=== PATIENT | male | born 1990 | race African-American/Black ===

== ENCOUNTER 2019-10-04 11:56 | Emergency (ER) | payer OTHER ==
[2019-10-04 12:06] VITALS: BP 134/82; PULSE 82; TEMP 97.8; BMI 29.8
--- NOTE | 2019-10-04 12:07 | PDOC ---
Rapid Medical Evaluation Chief Complaint: Abscess Boil Time Seen by Provider: 10/04/19 12:05 Medical Evaluation: Allergies Allergy/AdvReac Type Severity Reaction Status Date / Time No Known Allergies Allergy Verified 10/04/19 12:02 10/04/19 12:05 CC: boil to face and forehead x 3 days, denies hx mrsa, diabetes, had similar bumps to face r/t acne Exam: noted edema to rt nasal bridge and cheek, vss Plan: FT Discharge Disposition - Diagnosis Boil, face, Gluteal abscess - Discharge Dispostion Disposition: HOME Condition at time of disposition: Stable - Prescriptions Prescriptions: Mupirocin Ointment [Bactroban 2% Ointment -] 1 applic TP BID 7 Days #1 tube Clindamycin [Cleocin -] 300 mg PO TID #21 capsule - Referrals Referrals: Magdalene Arshad MD [Staff Physician] - Navneet Alcantara MD [Staff Physician] - - Patient Instructions Printed Discharge Instructions: Boil, DI for Skin Abscess Additional Instructions: Take prescribed medication as prescribed. Apply heat compresses to abscess area 2-3 times a day for 5 minutes to help abscess draining resolve faster. Follow- up referred dermatology Dr. Arshad or plastic surgeon Dr. Navneet Alcantara for management of abscess to the face and buttocks - Post Discharge Activity
[2019-10-04] MEDS ORDERED: CLINDAMYCIN HCL 300 MG CAPSULE PO ONE (12:22)
[2019-10-04] MEDS ORDERED: CLINDAMYCIN HCL 150 MG CAPSULE (FP) ONE (12:29)
--- NOTE | 2019-10-04 12:30 | PDOC ---
History of Present Illness - General Chief Complaint: Abscess Boil Stated Complaint: BOILS Time Seen by Provider: 10/04/19 12:05 History Source: Patient Exam Limitations: Clinical Condition - History of Present Illness Initial Comments: 10/04/19 12:32 Patient with past medical history of recurrent abscesses presented with complaint of abscess to the face on the bridge of the nose, forehead and multiple abscess to gluteal area which has been going on for a week now. Patient report had abscesses drained 2 months ago in a dermatology office where he lives by abscess came back again. Patient has not followed up since then. Patient here with mother and reported familial history of multiple abscesses which multiple family members suffer from skin abscesses. Denies fever, chills, blurry vision, change in vision, nausea, vomiting. Denies any other symptoms Timing/Duration: reports: week Past History - Medical History Allergies/Adverse Reactions: Allergies Allergy/AdvReac Type Severity Reaction Status Date / Time No Known Allergies Allergy Verified 10/04/19 12:02 Home Medications: Ambulatory Orders Clindamycin [Cleocin -] 300 mg PO TID #21 capsule 10/04/19 Mupirocin Ointment [Bactroban 2% Ointment -] 1 applic TP BID 7 Days #1 tube - Psycho-Social/Smoking History Smoking History: Never smoked Information on smoking cessation initiated: No - Substance Abuse Hx (Audit-C & DAST Scrn) In the last yr the pt used illegal drug/Rx for NonMed reason: No Score: Yes response is considered Positive: 0 Screen Result (Positive result requires Nsg. DAST-10): Negative Review of Systems - Review of Systems Able to Perform ROS?: Yes Is the patient limited [place] proficient: No Constitutional: No: Chills, Fever, Malaise HEENTM: No: Symptoms Reported, See HPI, Eye Pain, Blurred Vision, Tearing, Recent change in vision, Double Vision, Cataracts, Ear Pain, Ocular Prothesis, Ear Discharge, Nose Pain, Nose Congestion, Tinnitus, Nose Bleeding, Hearing Loss, Throat Pain, Throat Swelling, Mouth Pain, Dental Problems, Difficulty Swallowing, Mouth Swelling, Other Respiratory: No: Symptoms reported Cardiac (ROS): No: Symptoms Reported Integumentary: Yes: Symptoms Reported, See HPI, Lumps (skin abscesses to face and gluteal region) Neurological: No: Symptoms reported, Weakness, Dizziness All Other Systems: Reviewed and Negative *Physical Exam - Vital Signs Last Vital Signs Temp Pulse Resp BP Pulse Ox 97.8 F 82 16 134/82 99 10/04/19 12:03 10/04/19 12:03 10/04/19 12:03 10/04/19 12:03 10/04/19 12:03 - Physical Exam 10/04/19 12:38 GENERAL: Well developed, well nourished. Awake and alert. No acute distress. HEENT: Normocephalic, atraumatic. PERRLA, EOMI. No conjunctival pallor. Sclera are non-icteric. Moist mucous membranes. Oropharynx is clear. NECK: Supple. Full ROM. PULMONARY: No evidence of respiratory distress. MUSCULOSKELETAL Normal range of motion at all joints. SKIN: Warm and dry. Normal capillary refill. 3 cm abscess to bridge of the nose on medial side on the right eye. Another 1 mm hard non-fluctuant induration to forehead between bilateral eyelashes. No drainage from site. 3 area of multiple abscesses to bilateral gluteal area with one area of tiny open wound to abscess of medial side of left gluteal area. No active drainage from site. No skin erythema. NEUROLOGICAL: Alert, awake, appropriate. Gait is normal without ataxia. PSYCHIATRIC: Cooperative. Good eye contact. Appropriate mood General Appearance: Yes: Nourished, Appropriately Dressed. No: Apparent Distress Medical Decision Making - Medical Decision Making 10/04/19 12:34 Patient with past medical history of recurrent abscesses presented with complaint of abscess to the face on the bridge of the nose, forehead and multiple abscess to gluteal area which has been going on for a week now. Patient report had abscesses drained 2 months ago in a dermatology office where he lives by abscess came back again. Patient has not followed up since then. Patient here with mother and reported familial history of multiple abscesses which multiple family members suffer from skin abscesses. Denies fever, chills, blurry vision, change in vision, nausea, vomiting. Denies any other symptoms Exam significant for 3 cm abscess to bridge of the nose on medial side on the right eye. Another 1 mm abscess to forehead between bilateral eyelashes. No drainage from site. 3 area of multiple abscesses to bilateral gluteal area with one area of tiny open wound to abscess of left medial side of gluteal area. No active drainage from site. No skin erythema. Pupil equal and reflective to light bilateral and extraocular muscle intact. Patient afebrile in no acute distress. Given location of the abscess, patient will need a specialist to drain abscess as its close to right eye by the bridge of the nose. Patient stable for discharge on clindamycin antibiotics and topical mupirocin for abscesses with follow-up with plastic surgery for management of abscesses. Patient educated on hot compresses to help resolve abscess faster and discussed need for strict follow-up. Patient voiced understanding of follow-up with dermatology and plastic surgeon Discharge - Discharge Information Problems reviewed: Yes Clinical Impression/Diagnosis: Boil, face, Gluteal abscess Condition: Stable Disposition: HOME - Admission No - Additional Discharge Information Prescriptions: Mupirocin Ointment [Bactroban 2% Ointment -] 1 applic TP BID 7 Days #1 tube Clindamycin [Cleocin -] 300 mg PO TID #21 capsule - Follow up/Referral Referrals: Magdalene Arshad MD [Staff Physician] - Navneet Alcantara MD [Staff Physician] - - Patient Discharge Instructions Patient Printed Discharge Instructions: [facility] for Skin Abscess Additional Instructions: Take prescribed medication as prescribed. Apply heat compresses to abscess area 2-3 times a day for 5 minutes to help abscess draining resolve faster. Follow- up referred dermatology Dr. Arshad or plastic surgeon Dr. Navneet Alcantara for management of abscess to the face and buttocks - Post Discharge Activity
== END 2019-10-04 12:41 | disposition home or self-care (01) ==
LOC: JERFT 11:56
DX: L02.02 Furuncle of face (principal); L02.31 Cutaneous abscess of buttock
CPT/HCPCS: 99283-25